=== PATIENT | female | born 1930 | race Caucasian/White ===

== ENCOUNTER 2017-04-25 08:57 | Emergency (ER) | payer MEDICARE, OTHER ==
[~2017-04-25] VITALS: Ht 144.8 cm; Wt 36.8 kg
[~2017-04-25 08:57] MED LIST: ADV250INH INH; ASAEC PO; Keflex; Keflex PO; LOSA1TAB69 PO; OMEP40CA25 PO; Prednisone PO; SYN75 PO; [UNRECOGNIZED DRUG - OTHER]; ceterizine
[2017-04-25 08:59] VITALS: BP 118/71; PULSE 86; RESP 18; O2SAT 99
--- NOTE | 2017-04-25 09:16 | ED.REPORT ---
HPI-Abd Pain F 40 and Over Date of Service Apr 25, 2017 ED Provider: Vazquez Olivares MD Pt is a 86 y/o female with a history of HTN, COPD, and asthma who presents to the ED with a referral from Dr. Posey complaining of nausea onset three weeks ago. Additional symptoms include vomiting, decreased appetite secondary to nausea, decreased fluid intake, constipation that has since resolved this morning, and weight loss (about 15 lbs in 3 weeks). She denies hematemesis, abdominal pain, fever, SOB, cough, chest pain, diarrhea, or dysphagia. She has been taking nausea medications at home. She denies any symptoms previously. She has an appointment with a elder assistant for a barium swallow on 05/18/17. Nursing Notes Stated Complaint: NAUSEA/VOMITING Chief Complaint: Female Abdominal Pain Nursing Notes Reviewed: Yes Allergies: Coded Allergies: No Known Allergies (Unverified Allergy, Unknown, 02/06/15) Scheduled ([ceterizine]) 10 MG DAILY Take one tablet daily as needed for allergies. ([Keflex]) 500 MG PO Q6 Take one tablet by mouth every 6 hours for 7 days. ([Prednisone]) PO DAILY Take 30mg by mouth for 2 days then Take 20mg by mouth for 3 days then Take 10mg by mouth for 3 days then stop. Aspirin-Expunged Drug, Do Not Renew! (Aspirin EC-Expunged Drug, Do Not Renew!) 325 Mg Tablet 325 MG PO DAILY Flutic/Salmet-Expunged Drug, Do Not Renew! (Advair 500/50-Expunged Drug, Do Not Renew!) 60 Puff Disk 1 PUFF INH BID 1 PUFF BID Levothyroxine-Expunged Drug, Do Not Renew! (Synthroid-Expunged Drug, Do Not Renew!) 75 Mcg Tablet 75 MCG PO DAILY Losartan/HCTZ-Expunged Drug, Do Not Renew! (Losartan/HCTZ 50/12.5-Expunged, Do Not Renew!) 1 Each Tablet 1 EACH PO DAILY Omeprazole-Expunged Drug, Do Not Renew! (Omeprazole-Expunged Drug, Do Not Renew! ) 40 Mg Capsule. 40 MG PO DAILY Scheduled PRN ([xopinex inh]) 2 PUFFS Q4-6H PRN PRN 2 puffs every 4-6hours as needed for shortness of breath Miscellaneous Medications ([Keflex]) General Time Seen by MD: 09:07 Chief Complaint Nausea Hx Obtained From: Patient Arrived By: Walk-in Sudden in Onset?: No Onset Occurred: More than a week ago... (3 weeks) Symptom Duration: Intermittent Recent Healthcare: No recent hospitalization, Recent doctor visit Similar Sx Previous: Yes Risk Factors )( AAA Risk Stratification Hypertension Risk factors reviewed Past Medical History Past Medical History Hypertension Asthma Hypothyroidism Reports: COPD Past Surgical History Thyroid Surgery Smoking History Never Smoker Social History Alcohol Use: Denies alcohol use Drug Use: Denies drug use Other Social History: Good social support Ambulatory Status Independent Review of Systems Unable to eat secondary to nausea Decreased fluid intake Constitutional: Denies: Fever Respiratory: Denies: Non-productive cough, Prod cough, clear, Shortness of breath Cardiovascular: Denies: Chest pain GI: Reports: Constipation, Nausea, Vomiting, Denies: Abdominal pain, Diarrhea, Dysphagia, Hematemesis Complete sys rev & neg: except as marked. Endocrine: Reports: Weight loss Physical Exam Vital Signs Vital Signs (First) Date Time Temp Pulse Resp B/P Pulse Ox O2 Delivery O2 Flow Rate FiO2 04/25/17 08:59 35.8 86 18 118/71 99 Room Air Initial VS: Reviewed, Vital signs normal Head / Eyes: Atraumatic, Normocephalic Neck: Supple, Full range of motion Extremities: Vascular intact, Neuro intact, No swelling, No tenderness Skin: Warm, Dry, No cyanosis Neurologic: Alert, Oriented, Nonfocal Psychiatric: Mood/affect normal, Behavior normal, Normal thought content General/Constitutional: Awake, Alert, Cooperative, Not toxic appearing Respiratory / Chest: Atraumatic, Breath sounds NL, Breath sounds = bilat, No respiratory distress, No rales, No rhonchi, No wheezing Cardiovascular: Heart rate NL, Regular rhythm, Heart sounds NL Abdomen: Atraumatic, Soft, Non-tender Back: Atraumatic, Inspection NL, Full range of motion Interpretation & Diagnostics Lab Results Interpretation Result Diagram: 04/25/17 0915 04/25/17 0915 Test 04/25/17 09:15 04/25/17 13:06 White Blood Count 11.5th/mm3 (3.8-10.1) Red Blood Count 4.36mil/mm3 (3.90-5.20) Hemoglobin 13.1g/dL (12.0-15.6) Hematocrit 39.1% (35.0-46.0) Mean Corpuscular Volume 89.7fL (81-100) Mean Corpuscular Hemoglobin 30.0pg (27.0-35.0) Mean Corpuscular Hemoglobin Concent 33.5% (32.0-37.0) Red Cell Distribution Width 13.3% (12.3-15.4) Platelet Count 279bil/L (150-400) Neutrophils (%) (Auto) 58.7% (40-74) Lymphocytes (%) (Auto) 24.3% (14-46) Monocytes (%) (Auto) 9.8% (4-12) Eosinophils (%) (Auto) 6.5% (0-5) Basophils (%) (Auto) 0.5% (0-3) Sodium Level 137mEq/L (134-144) Potassium Level 4.1mEq/L (3.5-5.2) Chloride Level 99mEq/L (97-108) Carbon Dioxide Level 23mmol/L (18-29) Blood Urea Nitrogen 47mg/dL (8-27) Creatinine 1.44mg/dL (0.57-1.00) Estimat Glomerular Filtration Rate 49mL/min (>59) Glucose Level 115mg/dL (60-99) Calcium Level 10.0mg/dL (8.5-10.1) Magnesium Level 1.8mg/dL (1.6-2.6) Total Bilirubin 0.5mg/dL (0.0-1.2) Aspartate Amino Transf (AST/SGOT) 28U/L (0-50) Alanine Aminotransferase (ALT/SGPT) 19U/L (0-32) Alkaline Phosphatase 61U/L (25-165) Total Protein 7.2g/dL (6.4-8.4) Albumin 3.8g/dL (3.4-5.0) Lipase 61U/L (13-60) Hold Hart Top Tube Received (Received) Urine Color Yellow (YELLOW) Urine Appearance Clear (CLEAR,HAZY) Urine pH 5.5 (5.0-8.0) Urine Specific [place] 1.015 (1.003-1.035) Urine Protein Negativemg/dL (NEG,TRACE) Urine Glucose (UA) Negativemg/dL (NEGATIVE) Urine Ketones Negativemg/dL (NEGATIVE) Urine Occult Blood Negative (NEGATIVE) Urine Nitrite Negative (NEGATIVE) Urine Bilirubin Negative (NEGATIVE) Urine Urobilinogen Normalmg/dL (NORMAL) Urine Leukocyte Esterase Negative (NEGATIVE) Urine RBC 0-2/hpf (0-2) Urine WBC 0-5/hpf (0-5) Urine Epithelial Cells None/hpf (NONE-MOD) Urine Crystals None seen (NONE SEEN) Urine Bacteria None/hpf (NONE-FEW) Urine Hyaline Casts Occasional/lpf (NONE) Urine Granular Casts None seen (NONE SEEN) Urine Waxy Casts None seen (NONE SEEN) Urine Red Blood Cell Casts None seen (NONE SEEN) Urine White Blood Cell Casts None seen (NONE SEEN) Urine Mucus Present (None Seen) Urine Trichomonas None seen (NONE SEEN) Urine Yeast None (NONE SEEN) Urinalysis Comment None Urine Culture Reflexed Not indicated X-Ray Abdominal Interpretation IMPRESSION: Moderate stool consistent with constipation. No obstruction. Dictated by: Veorna North M.D. on 04/25/2017 at 10:39 Approved by: Verona North M.D. on 04/25/2017 at 10:39 Interpretation / Wet Read by: Interpret - Radiologist Re-Eval/Medical Decision Med Decision/Clinical Course 86-year-old female history of hiatal hernia presenting complaining of nausea and intermittent times several weeks. She had none while she was here. Her vital signs are stable. Her labs are unremarkable. Her urine is negative for infection. Her x-ray shows constipation no obstruction. She felt much better after IV fluids and IV antiemetics. She was discharged with plans to continue her Zofran and follow up with primary doctor for the outpatient studies that are pending. She likely needs a referral to GI for endoscopy as well. Return precautions given. Source of Hx: Old records Re-Evaluation/Progress : Time of Eval: 11:39 Patient Status: Mild relief Re-Evaluation/Progress Note: Patient reports that she is no longer nauseous. Discussed lab results and X-ray results. Plan for discharge pending urine. Patient understands and agrees to plan. All questions were addressed. Counseled Regarding: Diagnosis, Lab results, Need for follow-up, When/why to return to ED Discharge & Departure Primary Impression: Vomiting Vomiting type: unspecified Vomiting Intractability: unspecified Nausea presence: with nausea Qualified Code: R11.2 - Nausea with vomiting, unspecified Disposition: Home Discharge Condition All VS Reviewed: Yes Condition: Stable Patient Instructions: Acute Nausea and Vomiting (ED) Additional Instructions: Your labs and X-ray were normal and reassuring. There was evidence of some constipation. You can take Miralax to help with the constipation. Try to add extra fiber to your diet and drink plenty of fluids. Keep your follow up appointment with Dr. Posey and see if you can schedule an endoscopy, along with trying to move up your barium swallow test. Return to the emergency department if you develop any new or concerning symptoms. Referrals: Lisa Matta MD (PCP) Scribe Attestation Portions of this note were transcribed by Lisa Potter and Margaret Hernandez. I, Dr. Olivares, personally performed the history, physical exam and medical decision-making; I reviewed and confirmed the accuracy of the information in the transcribed note. copies to: Lisa Matta MD, Ben M MD Apr 25, 2017 09:16 Lisa Potter Apr 25, 2017 09:54 Aicha Hernandez Apr 25, 2017 11:28
[2017-04-25] MEDS ORDERED: 0.9% Sodium Chloride 250 ML IV ONE (10:04)
[2017-04-25] MEDS ORDERED: Ondansetron 2 mg/mL 2 mL Inj IVPUSH PRN (10:05)
[2017-04-25] MEDS ORDERED: MetoCLOpramide 5 mg/mL 2 mL Inj IVPUSH ONE (10:05)
[2017-04-25 10:06] LABS: BASOPHILS % (AUTO) 0.5 % (0-3); EOSINOPHILS % (AUTO) 6.5 % (0-5); MONOCYTES % (AUTO) 9.8 % (4-12); Mean Corpuscular Volume 89.7 fL (81-100); NEUTROPHILS % (AUTO) 58.7 % (40-74); Platelet Count 279 bil/L (150-400)
[2017-04-25 10:18] LABS: Magnesium 1.8 mg/dL (1.6-2.6)
--- NOTE | 2017-04-25 10:41 | DRSVH ---
PROCEDURE: X-RAY ACUTE ABDOMINAL SERIES ([id number]) INDICATIONS: abd pain/nausea/vomiting TECHNIQUE: One view chest and two views of the abdomen were acquired. COMPARISON: [facility], CR, XR ABD ACUTE SERIES 3VW, 11/24/2016, 12:56. FINDINGS: Surgical changes and devices: None. Chest: Lungs are clear. Lungs are hyperinflated suggestive of COPD. Heart size is normal. No pleur al effusions. No pneumoperitoneum. Abdomen: Bowel gas pattern is nonobstructive. Moderate stool is present. No suspicious calcification s. Visualized solid organ contours appear normal. Bones: No suspicious bony lesions. IMPRESSION: Moderate stool consistent with constipation. No obstruction. Dictated by: Verona North M.D. on 04/25/2017 at 10:39 Approved by: Verona North M.D. on 04/25/2017 at 10:39
[2017-04-25] MEDS ORDERED: 0.9% Sodium Chloride 250 ML ONE (10:46)
[2017-04-25 13:26] LABS: APPEARANCE,URINE CLEAR (CLEAR,HAZY); COLOR,URINE YELLOW (YELLOW); OCCULT BLOOD,URINE NEGATIVE (NEGATIVE); PH,URINE 5.5 (5.0-8.0); UROBILINOGEN,URINE NORMAL (NORMAL)
[2017-04-25 13:34] VITALS: BP 137/50; PULSE 86; RESP 14; O2SAT 100
== END 2017-04-25 13:28 | disposition home or self-care (01) ==
LOC: SED 08:57
DX: R11.2 Nausea with vomiting, unspecified (principal); K59.00 Constipation, unspecified; I10 Essential (primary) hypertension; J45.909 Unspecified asthma, uncomplicated; E03.9 Hypothyroidism, unspecified; Z87.19 Personal history of other diseases of the digestive system; Z90.89 Acquired absence of other organs; Z79.52 Long term (current) use of systemic steroids; Z79.51 Long term (current) use of inhaled steroids; Z79.82 Long term (current) use of aspirin
CPT/HCPCS: 36415; 74022; 80053; 81000; 83690; 83735; 85025; 96361; 96374; 99284; J2765; J7030